=== PATIENT | female | born 1955 | race Caucasian/White ===

== ENCOUNTER 2025-03-01 11:54 | Emergency (ER) | payer MEDICARE, MEDICAID ==
[2025-03-01] MEDS ORDERED: Ondansetron PF 4 MG/2 ML Vial ONE (12:35)
[2025-03-01] MEDS ORDERED: Dicyclomine 20 MG TAB ONE (12:35)
[2025-03-01 12:41] LABS: #Basophils 0.2 thou/uL (0.0-0.2); #Eosinophils 0.3 thou/uL (0.0-0.7); #Lymphocytes 3.4 thou/uL (1.20-3.40); #Monocytes 0.8 thou/uL (0.11-0.59); #Neutrophils 3.9 thou/uL (1.40-6.50); %Basophils 1.9 % (0.0-1.0); %Eosinophils 3.1 % (0.0-10.0); %Lymphocytes 39.7 % (21.0-51.0); %Monocytes 9.9 % (0.0-10.0); %Neutrophils 45.4 % (42.0-75.0); Hematocrit 42.8 % (36.0-47.0); Hemoglobin 13.5 g/dL (12.0-16.0); Mean Corpuscular Hemoglobin 29.8 pg (27.0-31.0); Mean Corpuscular Volume 94.5 fl (78.0-98.0); Platelet Count 293 10x3/uL (130-400); Red Blood Cell (RBC) Count 4.53 mill/uL (4.20-5.40); White Blood Cell (WBC) Count 8.5 10x3/uL (4.8-10.8)
[2025-03-01 12:50] LABS: Glucose, Urine (Dipstick) Negative (Negative); Leukocyte Negative (Negative); Protein, Urine (Dipstick) Negative (Neg-Trace); Specific Gravity, Urine Less/Equal 1.005 (1.005-1.030)
[2025-03-01 12:55] LABS: Troponin I 0.020 ng/mL (< 0.028)
[2025-03-01 12:57] LABS: ALT (SGPT) 52 U/L (Less than 34); AST (SGOT) 38 U/L (11-34); Albumin 4.3 g/dL (3.1-4.5); Alkaline Phosphatase 89 U/L (40-110); Anion Gap 17 mmol/L (10-20); BUN (Urea Nitrogen) 17 mg/dL (9.8-20.1); Bilirubin, Total 0.3 mg/dL (0.3-1.2); Calc. Creatinine Clearance 0 mL/min (70-130); Calcium 9.7 mg/dL (7.8-10.44); Carbon Dioxide 26 mmol/L (23-31); Chloride 101 mmol/L (98-107); Globulin 3.5 g/dL (2.4-3.5); Glucose 120 mg/dL (83-110); Lipase 49 U/L (8-78); Potassium 3.9 mmol/L (3.5-5.1); Sodium 140 mmol/L (136-145)
[2025-03-01 13:00] LABS: Bacteria/HPF None Seen HPF (None Seen); CAUTI Indications for Culture Dysuria,urgency,freq; RBC/HPF None Seen HPF (0-3); WBC/HPF None Seen HPF (0-3)
[2025-03-01 13:02] LABS: Urine Culture Reflex No No
[2025-03-01] MEDS ORDERED: Iopamidol 370 76% 100 ML VIAL ONE (15:31)
== END 2025-03-01 14:00 | disposition home or self-care (01) ==
LOC: BURERS 11:54
DX: R10.30 Lower abdominal pain, unspecified (principal); R11.2 Nausea with vomiting, unspecified; E11.9 Type 2 diabetes mellitus without complications
CPT/HCPCS: 74177; 80053; 81001; 83690; 83880; 84484; 85025; 93005; J2405; Q9967; 36415; 96374